=== PATIENT | female | born 1960 | race Caucasian/White ===

== ENCOUNTER → 2017-08-06 | Outpatient (CLI) | payer OTHER, MEDICARE | END | disposition home or self-care (01) | LOC: C.LABSPEC 15:54 | PROVIDERS: ATTEND Obstetrics & Gynecology | DX: N89.8 Other specified noninflammatory disorders of vagina (principal) ==

== ENCOUNTER → 2017-09-17 | Outpatient (CLI) | payer OTHER, MEDICARE ==
--- NOTE | 2017-09-17 15:51 | MAMMOGRAPHY REPORT ---
BILATERAL DIGITAL SCREENING MAMMOGRAM TOMOSYNTHESIS WITH CAD: 09/17/2017 CLINICAL HISTORY: Routine screening. TECHNIQUE: Breast tomosynthesis in addition to standard 2D mammography was performed. Current study was also evaluated with a Computer Aided Detection (CAD) system. COMPARISON: Comparison is made to exams dated: 09/15/2016 mammogram, 09/11/2015 mammogram, 4 mammogram, 09/07/2013 mammogram, 09/06/2012 mammogram, and 08/17/2011 mammogram - [facility]. BREAST COMPOSITION: There are scattered areas of fibroglandular density in both breasts. FINDINGS: No suspicious masses, calcifications, or areas of architectural distortion are noted in ei ther breast. There has been no significant interval change compared to prior exams. Scattered bilater al benign-appearing calcifications are not significantly changed. IMPRESSION: ACR BI-RADS CATEGORY 2: BENIGN There is no mammographic evidence of malignancy. A 1 year screening mammogram is recommended. The pa tient will receive written notification of the results. Approximately 10% of breast cancers are not detected with mammography. A negative mammographic report should not delay biopsy if a clinically suggestive mass is present. Basilia Butler M.D. ah/:09/17/2017 14:57:57 Oncology Pharmacist: Dane STARR(R)(M), [facility] letter sent: Normal 1/2 BI-RADS Code: ACR BI-RADS Category 2: Benign
== END | disposition home or self-care (01) ==
LOC: C.MAMM 11:00
PROVIDERS: ATTEND Obstetrics & Gynecology
DX: Z12.31 Encounter for screening mammogram for malignant neoplasm of breast (principal)

== ENCOUNTER 2019-09-28 16:04 | Inpatient (IN) ==
--- NOTE | 2019-09-28 17:14 | XRay Report ---
XR chest 1V portable CLINICAL HISTORY: weakness COMPARISON STUDY: Chest radiograph August 03, 2012. FINDINGS: Lung volumes are normal. Lungs are clear. There is no pneumothorax or pleural effusion. Car diac size is normal. Mediastinal contours are normal. There is no evidence for pulmonary edema. IMPRESSION: No acute cardiopulmonary findings. Electronically signed by: Ervin Valle M.D. 09/28/2019 5:12 PM
[2019-09-28 17:19] LABS: Appearance Urine Clear (Clear); Bilirubin Urine Negative (Negative); Blood Urine Negative (Negative); Color Urine Yellow; Glucose Urine UA Negative (Negative); Ketones Urine Negative (Negative); Leukocyte Esterase Urine Negative (Negative); Nitrite Urine Negative (Negative); Protein Urine Negative (Negative); Specific Gravity Urine 1.016 (1.000-1.030); Urobilinogen Urine Negative (Negative)
[2019-09-28 17:21] LABS: Basophils # (auto) 0.03 K/uL (0-0.2); Basophils % (auto) 0.4 %; Eosinophils # (auto) 0.04 K/uL (0-0.5); Eosinophils % (auto) 0.6 %; Hematocrit (blood only) 37.3 % (37-47); Hemoglobin 13.4 g/dL (12.0-16.0); Immature Granulocytes # (auto) 0.01 K/uL (0.00-0.02); Immature Granulocytes % (auto) 0.1 %; Lymphocytes # (auto) 1.94 K/uL (1.2-3.4); Lymphocytes % (auto) 28.2 %; Mean Corpuscular Hemoglobin 30.2 pg (25-34); Mean Corpuscular Hgb Conc 35.9 g/dL (32-36); Mean Corpuscular Volume 84.2 fL (80-100); Mean Platelet Volume 9.6 fL (7.4-10.4); Monocytes # (auto) 0.89 K/uL (0.11-0.59); Monocytes % (auto) 12.9 %; Neutrophils # (auto) 3.98 K/uL (1.4-6.5); Neutrophils % (auto) 57.8 %; Platelet Count 231 K/uL (130-400); RDW Coefficient of Variation 11.7 % (11.5-14.5); RDW Standard Deviation 36.3 fL (36.4-46.3); Red Blood Count 4.43 M/uL (4.2-5.4); White Blood Count 6.89 K/uL (4.8-10.8)
[2019-09-28 17:23] LABS: Alanine Aminotransferase 34 U/L (12-78); Albumin Level 3.9 gm/dl (3.4-5.0); Aspartate Aminotransferase 27 U/L (15-37); BUN Creatinine Ratio 21.1 (10-20); Blood Urea Nitrogen 39 mg/dl (7-18); Calcium 9.7 mg/dl (8.5-10.1); Carbon Dioxide 26 mmol/L (21-32); Chloride 85 mmol/L (98-107); Est GFR (African American) 34.6; Est GFR (Non-African American) 29.9; Glucose 105 mg/dl (70-99); Potassium 4.2 mmol/L (3.5-5.1); Sodium 121 mmol/L (136-145)
[2019-09-28 17:34] LABS: Albumin Globulin Ratio 1.1 (0.9-2); Alkaline Phosphatase 112 U/L (45-117); Bilirubin,Total 0.9 mg/dl (0.2-1); Globulin 3.5 gm/dl (2.5-4.0); Total Protein 7.4 gm/dl (6.4-8.2)
[2019-09-28] MEDS ORDERED: SODIUM CHLORIDE 0.9% 1000ML 1,000 ML IV ONE (17:44)
[2019-09-28 17:58] LABS: Urine Potassium 19.1 mmol/L
--- NOTE | 2019-09-28 20:24 | Emergency Department Note ---
Entered by Lena Aj acting as a scribe for History of Present Illness General Chief complaint: Abnormal Labs/Diagnostic Testing Stated complaint: HYPONATREMIA Time Seen by Provider: 09/28/19 16:11 Source: patient History of Present Illness Onset (ago): day(s) (yesterday) Location: back Pain Consistency: + other (episode) Quality: + other (abnormal labs) Associated symptoms: + other (feeling "lousy," low back pain, increased urination) The patient is a 59 year old female w/ PMHx CKD and diabetes who presents to the ED w/ CC of an episode of abnormal labs starting yesterday. The patient states that she had blood work ordered by her PCP and her [employer] principal yesterday to evaluate her standing as she has been feeling lousy. She states that the results showed that her sodium was low. She states that they took her off her hydrochlorothiazide and started her on Amlodipine. She reports that they ordered for a repeat draw today and it came back even lower than yesterday. She states that they then called her and told her to come to the ED. The patient sates that she has been having lower back soreness and thought she had a UTI as she has been urinating a lot. She states that she has felt dehydrated as well so she started pushing more fluids and was treated for a UTI, but it didnt help. The patient denies change in diet, a history of thyroid issues, a cardiac history, and a history of liver issues. Home Medications Home Medications Medication Instructions Recorded Confirmed Type Bifidobacterium infantis [Align] 0 mg PO DAILY 09/28/19 09/28/19 History amlodipine 5 mg PO DAILY 09/28/19 09/28/19 History atorvastatin 20 mg PO DAILY 09/28/19 09/28/19 History cholecalciferol (vitamin D3) 0 unit PO DAILY 09/28/19 09/28/19 History [Vitamin D3] cyanocobalamin (vitamin B-12) 0 mcg PO DAILY 09/28/19 09/28/19 History [Vitamin B-12] fluconazole 150 mg PO UD 09/28/19 09/28/19 History hydroxychloroquine 200 mg PO BID 09/28/19 09/28/19 History insulin degludec [Tresiba 24 unit SUBCUT HS 09/28/19 09/28/19 History FlexTouch U-100] levothyroxine 75 mcg PO DAILY 09/28/19 09/28/19 History lisinopril 20 mg PO DAILY 09/28/19 09/28/19 History semaglutide [Ozempic] 0 mg SUBCUT WK 09/28/19 09/28/19 History spironolactone 0 mg PO DAILY 09/28/19 09/28/19 History vitamin E 400 unit PO DAILY 09/28/19 09/28/19 History Allergies Allergy/AdvReac Type Severity Reaction Status Date / Time levofloxacin Allergy Unknown ` Verified 09/28/19 17:31 Past Med/Surg History Medical History CKD (chronic kidney disease) Diabetes Family History Other Family history non-contributory Social History Preferred Language: Uzbek Beliefs That Will Affect Care: None marital status: Single Current Living Situation: Other Current Living Situation Comment: home with friend current occupational status: disabled Feels Safe at Home: Yes Safety Concerns: Feels Safe At This Time Smoking Status: Never smoker Hx Alcohol Use: No Hx Substance Use: No Review of Systems See HPI for pertinent positives & negatives. and A total of 10 systems reviewed and were otherwise negative Physical Exam Vital Signs Vital Signs - 24 hr 09/28/19 16:06 09/28/19 16:51 09/28/19 17:19 Temperature 36.5 C Temperature Source Oral Pulse Rate 93 H Pulse Rate [Apical] 71 Pulse Rate from SpO2 Sensor Pulse Rhythm [Apical] Pulse Strength [Apical] Respiratory Rate 22 18 Respiratory Effort / Characteristics Non-Labored Respiratory Depth Normal Respiratory Pattern Blood Pressure 162/82 H Blood Pressure [Left Arm] 133/59 L Blood Pressure Mean 108 Blood Pressure Mean [Left Arm] 83 Blood Pressure Position Sitting Blood Pressure Position [Left Arm] Pulse Oximetry 98 99 Oxygen Delivery Method Room Air Room Air Room Air Sepsis Recent Fever Within 48 Hours No Sepsis New/Unexplained Change in Mental Status No Sepsis Action Taken by Nursing No Action Required 09/28/19 17:56 09/28/19 19:37 09/28/19 19:38 Temperature Temperature Source Pulse Rate 72 Pulse Rate [Apical] 72 72 Pulse Rate from SpO2 Sensor 72 Pulse Rhythm [Apical] Regular Pulse Strength [Apical] Normal Respiratory Rate 18 14 16 Respiratory Effort / Characteristics Non-Labored Spontaneous Respiratory Depth Normal Respiratory Pattern Regular Blood Pressure 123/61 Blood Pressure [Left Arm] 117/52 L 123/61 Blood Pressure Mean 77 Blood Pressure Mean [Left Arm] 73 81 Blood Pressure Position Blood Pressure Position [Left Arm] Lying Pulse Oximetry 98 97 98 Oxygen Delivery Method Room Air Room Air Sepsis Recent Fever Within 48 Hours Sepsis New/Unexplained Change in Mental Status Sepsis Action Taken by Nursing 09/28/19 20:00 09/28/19 20:30 09/28/19 21:01 Temperature Temperature Source Pulse Rate 72 74 71 Pulse Rate [Apical] Pulse Rate from SpO2 Sensor 72 74 71 Pulse Rhythm [Apical] Pulse Strength [Apical] Respiratory Rate 14 18 21 Respiratory Effort / Characteristics Respiratory Depth Respiratory Pattern Blood Pressure 119/53 L 137/70 117/62 Blood Pressure [Left Arm] Blood Pressure Mean 68 87 74 Blood Pressure Mean [Left Arm] Blood Pressure Position Blood Pressure Position [Left Arm] Pulse Oximetry 97 98 98 Oxygen Delivery Method Sepsis Recent Fever Within 48 Hours Sepsis New/Unexplained Change in Mental Status Sepsis Action Taken by Nursing GENERAL: Well appearing, well nourished, NAD, non-toxic. Wearing glasses. EYE EXAM: Normal conjunctiva. PERRL, no anisocoria and EOM's grossly intact w/o pain. OROPHARYNX: Moist mucous membranes. Grossly normal dentition. NECK: Supple, no nuchal rigidity, no adenopathy, non-tender. No signs of meningismus. LUNGS: Clear to auscultation. Normal chest wall mechanics. HEART: NSR, no MRG. ABDOMEN: Abdomen soft, non-tender, normo-active bowel sounds, no masses, no rebound or guarding. BACK: No CVA TTP. SKIN: No rashes and no bruising. UPPER EXTREMITIES: Upper extremities are grossly normal. LOWER EXTREMITIES: No pitting edema. No calf pain. NEURO EXAM: A&O x3, cranial nerves II-XII grossly intact, normal speech, moves all 4 extremities on command w/o issue. Course Course 162: The patient was evaluated in room C4. A complete history and physical exam was performed. 1629: Orders were placed and the patient was started on a quality assurance monitor at this time. 1706: I reviewed the patient's records from today and her sodium was 122. 184: I reevaluated the patient and updated her on her test results. I discussed the treatment plan with her. She verbally agrees and understands. 1916: I discussed the [facility] He will evaluate the patient for further management. 1956: I discussed the patient's case with Dr. Marcano [facility] Hospitalist. He will evaluate the patient for further management. Administered Medications Amlodipine Besylate (Norvasc) 5 mg PO DAILY TYLER Stop: 10/29/19 08:59 Last Admin: 09/29/19 08:40 Dose: 5 mg Documented by: [id number] Atorvastatin Calcium (Lipitor) 20 mg PO DAILY TYLER Stop: 10/29/19 08:59 Last Admin: 09/29/19 08:40 Dose: 20 mg Documented by: [id number] Heparin Sodium (Porcine) (Heparin Sodium (Porcine)) 5,000 units SQ Q12 TYLER Stop: 10/29/19 08:59 Last Admin: 09/29/19 08:41 Dose: 5,000 units Documented by: [id number] Cosigned by: [id number] Hydroxychloroquine Sulfate (Plaquenil) 200 mg PO BID TYLER Stop: 10/28/19 20:59 Last Admin: 09/29/19 08:40 Dose: 200 mg Documented by: [id number] Admin: 09/28/19 22:54 Dose: 200 mg Documented by: [id number] Dextrose (D5w) 1,000 mls @ 80 mls/hr IV .[id number] TYLER Stop: 10/29/19 07:43 Last Admin: 09/29/19 08:34 Dose: 80 mls/hr Documented by: [id number] Insulin Aspart (Novolog Flexpen) 0 units SC ACHS TYLER Stop: 10/29/19 07:29 Last Admin: 09/29/19 08:38 Dose: Not Given Documented by: [id number] Cosigned by: [id number] Insulin Glargine (Lantus Solostar Pen) 15 units SC BID TYLER Stop: 10/28/19 22:01 Last Admin: 09/29/19 08:42 Dose: 15 units Documented by: [id number] Cosigned by: [id number] Admin: 09/28/19 22:54 Dose: 15 units Documented by: [id number] Cosigned by: [id number] Levothyroxine Sodium (Synthroid) 75 mcg PO DAILYBB TYLER Stop: 10/29/19 06:29 Last Admin: 09/29/19 06:00 Dose: 75 mcg Documented by: [id number] Discontinued Medications Sodium Chloride (Nss 1000ml) 1,000 mls @ 999 mls/hr IV .[id number] ONE Stop: 09/28/19 18:44 Last Infusion: 09/28/19 19:39 Dose: 0 mls/hr Documented by: [id number] Admin: 09/28/19 17:55 Dose: 999 mls/hr Documented by: [id number] Critical Care Time Critical Care Time: Yes Total Critical Care Time: 42 I have personally spent 42 minutes of critical care time in direct management of this patient. This includes bedside care, interpretation of diagnostic studies, and testing, discussion with consultants, patient, and family members, and other require inpatient management activities due to the hyponatremia and concern for possible seizure for which the patient did receive sodium containing fluids. This 42 minutes is in excess of all separately billable procedures. Medical Decision Making Differential Diagnosis Differential Diagnosis includes but is not limited to dehydration, stroke, anemia, hypoglycemia, hyponatremia, hypernatremia, urinary tract infection, pneumonia, bronchitis, sepsis, gastroenteritis, additional abdominal pathology, metabolic abnormalities and infections. Medical Records Attestation: I reviewed the patient's medical records. Home Medications Current Medication List: was personally reviewed by me Laboratory Data Attestation: I reviewed the patient's lab results. Result diagrams: 09/29/19 01:45 09/29/19 05:58 Lab Results 09/28/19 09/28/19 09/28/19 Range/Units 16:55 16:55 16:55 WBC 6.89 (4.8-10.8) K/uL RBC 4.43 (4.2-5.4) M/uL Hgb 13.4 (12.0-16.0) g/dL Hct 37.3 (37-47) % MCV 84.2 (80-100) fL MCH 30.2 (25-34) pg MCHC 35.9 (32-36) g/dL RDW Std Deviation 36.3 L (36.4-46.3) fL RDW Coeff of Donna 11.7 (11.5-14.5) % Plt Count 231 (130-400) K/uL MPV 9.6 (7.4-10.4) fL Immature Gran % (Auto) 0.1 % Neut % (Auto) 57.8 % Lymph % (Auto) 28.2 % Gove % (Auto) 12.9 % Eos % (Auto) 0.6 % Baso % (Auto) 0.4 % Immature Gran # (Auto) 0.01 (0.00-0.02) K/uL Neut # (Auto) 3.98 (1.4-6.5) K/uL Lymph # (Auto) 1.94 (1.2-3.4) K/uL [place] # (Auto) 0.89 H (0.11-0.59) K/uL Eos # (Auto) 0.04 (0-0.5) K/uL Baso # (Auto) 0.03 (0-0.2) K/uL Sodium 121 L (136-145) mmol/L Potassium 4.2 (3.5-5.1) mmol/L Chloride 85 L (98-107) mmol/L Carbon Dioxide 26 (21-32) mmol/L Anion Gap 10.0 (3-11) BUN 39 H (7-18) mg/dl Creatinine 1.83 H (0.6-1.2) mg/dl Est Cr Clr Drug Dosing Not Reportable Est GFR ( Amer) 34.6 Est GFR (Non-Af Amer) 29.9 BUN/Creatinine Ratio 21.1 H (10-20) Glucose 105 H (70-99) mg/dl Osmolality 260 L (280-300) mOsm/kg Calcium 9.7 (8.5-10.1) mg/dl Total Bilirubin 0.9 (0.2-1) mg/dl AST 27 (15-37) U/L ALT 34 (12-78) U/L Alkaline Phosphatase 112 (45-117) U/L Total Protein 7.4 (6.4-8.2) gm/dl Albumin 3.9 (3.4-5.0) gm/dl Globulin 3.5 (2.5-4.0) gm/dl Albumin/Globulin Ratio 1.1 (0.9-2) TSH 2.760 (0.300-4.500) uIu/ml Urine Color Urine Appearance (Clear) Urine pH (4.5-7.5) Ur Specific [place] (1.000-1.030) Urine Protein (Negative) Urine Glucose (UA) (Negative) Urine Ketones (Negative) Urine Blood (Negative) Urine Nitrite (Negative) Urine Bilirubin (Negative) Urine Urobilinogen (Negative) Ur Leukocyte Esterase (Negative) Urine Osmolality (500-800) mOsm/kg Urine Sodium mmol/L Urine Potassium mmol/L Urine Chloride mmol/L 09/28/19 09/28/19 09/28/19 Range/Units 17:04 17:04 17:04 WBC (4.8-10.8) K/uL RBC (4.2-5.4) M/uL Hgb (12.0-16.0) g/dL Hct (37-47) % MCV (80-100) fL MCH (25-34) pg MCHC (32-36) g/dL RDW Std Deviation (36.4-46.3) fL RDW Coeff of Donna (11.5-14.5) % Plt Count (130-400) K/uL MPV (7.4-10.4) fL Immature Gran % (Auto) % Neut % (Auto) % Lymph % (Auto) % [place] % (Auto) % Eos % (Auto) % Baso % (Auto) % Immature Gran # (Auto) (0.00-0.02) K/uL Neut # (Auto) (1.4-6.5) K/uL Lymph # (Auto) (1.2-3.4) K/uL G[place] # (Auto) (0.11-0.59) K/uL Eos # (Auto) (0-0.5) K/uL Baso # (Auto) (0-0.2) K/uL Sodium (136-145) mmol/L Potassium (3.5-5.1) mmol/L Chloride (98-107) mmol/L Carbon Dioxide (21-32) mmol/L Anion Gap (3-11) BUN (7-18) mg/dl Creatinine (0.6-1.2) mg/dl Est Cr Clr Drug Dosing Est GFR ( Amer) Est GFR (Non-Af Amer) BUN/Creatinine Ratio (10-20) Glucose (70-99) mg/dl Osmolality (280-300) mOsm/kg Calcium (8.5-10.1) mg/dl Total Bilirubin (0.2-1) mg/dl AST (15-37) U/L ALT (12-78) U/L Alkaline Phosphatase (45-117) U/L Total Protein (6.4-8.2) gm/dl Albumin (3.4-5.0) gm/dl Globulin (2.5-4.0) gm/dl Albumin/Globulin Ratio (0.9-2) TSH (0.300-4.500) uIu/ml Urine Color Yellow Urine Appearance Clear (Clear) Urine pH 5.0 (4.5-7.5) Ur Specific [place] 1.016 (1.000-1.030) Urine Protein Negative (Negative) Urine Glucose (UA) Negative (Negative) Urine Ketones Negative (Negative) Urine Blood Negative (Negative) Urine Nitrite Negative (Negative) Urine Bilirubin Negative (Negative) Urine Urobilinogen Negative (Negative) Ur Leukocyte Esterase Negative (Negative) Urine Osmolality 337 L (500-800) mOsm/kg Urine Sodium 36 mmol/L Urine Potassium 19.1 mmol/L Urine Chloride 21 mmol/L Imaging Data Radiologist's Impression: Radiology results as stated below per my review and the radiologist's interpretation: XR chest 1V portable CLINICAL HISTORY: weakness COMPARISON STUDY: Chest radiograph August 03, 2012. FINDINGS: Lung volumes are normal. Lungs are clear. There is no pneumothorax or pleural effusion. Cardiac size is normal. Mediastinal contours are normal. There is no evidence for pulmonary edema. IMPRESSION: No acute cardiopulmonary findings. Electronically signed by: Ervin Valle M.D. 09/28/2019 5:12 PM ECG Data Attestation: I personally reviewed and interpreted this ECG as follows: Indication: + weakness Rate (beats per minute): 72 Rhythm: + normal sinus ECG Intervals/blocks: + Normal QRS, + Normal [place] and + Normal QT-c ECG [place]: + Normal ECG ST segments: no ST depression and no ST elevation Blood Pressure Blood Pressure Findings: Normal blood pressure Blood Pressure Disposition: did not require urgent referral MDM Narrative The patient is a 59 year old female w/ PMHx CKD and diabetes who presents to the ED w/ CC of an episode of abnormal labs starting yesterday. Patient was seen and evaluated the bedside. The patient did present with concerns for low sodium. The patient has complained of some increasing fatigue weakness as well as mild low back discomfort and associated increasing urinary f requency. Patient does have a known history of CKD. Patient does appear to be little dry on exam the patient's blood work does show the patient is persistently hyponatremic. I did review the patient's out subtle labs which showed decreasing sodiums. Given the patient's hypovolemic status patient was given some IV fluids. Given the concern for acute hyponatremia which is not improving I did talk with the hospitalist agreed to further evaluate the patient. Patient was subsequently made to the medicine service. Impression & Plan Hyponatremia, ROBERT (acute kidney injury), Dehydration Discharge Plan Visit Data *Final* Discharge Date/Time: 09/28/19 21:38 Chief Complaint: Abnormal Labs/Diagnostic Testing Stated Complaint: HYPONATREMIA ED Provider: Kelechi Gracia Discharge Problem: Hyponatremia, ROBERT (acute kidney injury), Dehydration Patient Disposition: Admitted As Inpatient Discharge Instructions Interventions: ED Discharge Assessment Last Done: 09/28/19 21:38 The scribe's documentation has been prepared under my direction and personally reviewed by me in its entirety. I confirm that the note above accurately reflects all work, treatment, procedures, and medical decision making performed by me.
--- NOTE | 2019-09-28 21:32 | History & Physical Report ---
Date of Service September 28, 2019 Assessment & Plan (1) Hyponatremia: Pt is a 59yo F PMH CKD, DM, HTN, hypothyroid, DLD, Fibromyalgia admitted for hyponatremia. Hyponatremia BMP every 4 hours -Patient appears clinically euvolemic. 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 Acute on chronic kidney disease Baseline creatinine of 1.5-1.6 -Patient received 1 L of IV fluids in the ER, first recheck revealed creatinine of 1.6 (from 1.83) -Cautious use of IV fluids. Hypertension Continue amlodipine, hold lisinopril, hold spironolactone. Blood pressure within normal limits. Diabetes BSG ACHS Holding home medication. Unclear if ozempic related to current symptoms and lab abnormalities. Insulin sliding scale and long-acting insulin initiated Hypothyroid Continue home medication. Code: Full Dispo: MedSurg with telemetry DVT prophylaxis: Heparin SQ twice daily (2) ROBERT (acute kidney injury): (3) Diabetes: (4) CKD (chronic kidney disease): (5) HTN (hypertension): (6) Hypothyroid: (7) Hyperlipidemia: (8) Fibromyalgia: History of Present Illness Chief Complaint: Malaise, weakness, nausea Primary Care Provider: Chavez Griffin Jr, DO Pt is a 59yo F PMH CKD, DM, HTN, hypothyroid, DLD, Fibromyalgia, who presents at request of outside provider for abnormal labs. Pt notes she has been feeling unwell for several weeks, but symptoms worsened today. She notes general malaise, nausea (intermittent), weakness, and increased urination despite no increase in fluid intake. Patient notes that 3 weeks ago her PCP checked lab work which revealed a creatinine elevation at 2.1; she notes this is the highest it has been in 5 years. She also notes continued frequency of urination, which prompted her PCP prescribing a 7-day course of antibiotics. She states she felt okay for 3 or 4 days, then symptoms returned. PCP ordered labs at that time, and then changed her antibiotics to a 10-day course. She does not recall which antibiotics she was on. She notes that her PCP got her lab results back and UA did not show an infection, however, patient was continuing to have lower back symptoms as well as frequency of urination. Due to her elevated creatinine, her PCP set her up with nephrology through [facility] with Dr. Yasmeen Lundberg. Her first appointment was this week. Per the patient, Dr. Lundberg obtained lab work which resulted today, and patient was found to be hyponatremic, which prompted referral to the ER. Of note, patient recently started medication Ozempic for her diabetes in August. She was concerned that despite her improved glucose control, the medication was causing her kidney issues. Patient notes that her security checker said this was unlikely unless she was dehydrated. Patient states she drinks at least 70 ounces of water per day. Her last dose was about a week ago. Her PCP and automotive specialty technician suggested she DC this medication. She notes her blood sugars have been improved however, and notes her last A1c was 6.7% last month. Per the patient, Dr. Lundberg discontinued her HCTZ medication, and also added amlodipine to her regimen. Evaluation in the ER revealed a normal CBC, and BMP showed a sodium of 121, potassium 4.2 creatinine of 1.83. It appears her baseline is 1.5-1.6. Serum osm was measured at 260, urine osm was measured at 337, urine sodium of 36, urine potassium of 19, urine creatinine was ordered. TSH was normal. Chest x- ray normal, EKG with normal sinus rhythm. Allergies Allergy/AdvReac Type Severity Reaction Status Date / Time levofloxacin Allergy Unknown ` Verified 09/28/19 17:31 hydrochlorothiazide AdvReac Mild Caused Verified 09/29/19 18:06 hyponatremia Home Medications Home Medications Medication Instructions Recorded Confirmed Type Bifidobacterium infantis [Align] 0 mg PO DAILY 09/28/19 09/28/19 History amlodipine 5 mg PO DAILY 09/28/19 09/28/19 History atorvastatin 20 mg PO DAILY 09/28/19 09/28/19 History cholecalciferol (vitamin D3) 0 unit PO DAILY 09/28/19 09/28/19 History [Vitamin D3] cyanocobalamin (vitamin B-12) 0 mcg PO DAILY 09/28/19 09/28/19 History [Vitamin B-12] fluconazole 150 mg PO UD 09/28/19 09/28/19 History hydroxychloroquine 200 mg PO BID 09/28/19 09/28/19 History insulin degludec [Tresiba 24 unit SUBCUT HS 09/28/19 09/28/19 History FlexTouch U-100] levothyroxine 75 mcg PO DAILY 09/28/19 09/28/19 History lisinopril 20 mg PO DAILY 09/28/19 09/28/19 History semaglutide [Ozempic] 0 mg SUBCUT WK 09/28/19 09/28/19 History spironolactone 0 mg PO DAILY 09/28/19 09/28/19 History vitamin E 400 unit PO DAILY 09/28/19 09/28/19 History Past Med/Surg History Medical History CKD (chronic kidney disease) Diabetes HTN (hypertension) Family History Other Family history non-contributory Social History Preferred Language: Latvian Beliefs That Will Affect Care: None marital status: Single Current Living Situation: Other Current Living Situation Comment: home with friend current occupational status: disabled Feels Safe at Home: Yes Safety Concerns: Feels Safe At This Time Smoking Status: Never smoker Hx Alcohol Use: No Hx Substance Use: No Review of Systems Review of Systems: All systems reviewed & are unremarkable except as noted in HPI & below Review of systems otherwise negative, total of 10 systems reviewed. Please see HPI. Physical Exam Physical Exam: General: Well-appearing F, in no significant distress. HEENT: No scleral icterus, PERRLA, neck supple. Atraumatic. Cardiovascular: Regular rate and rhythm, systolic murmur noted. Pulmonary: Clear to auscultation bilaterally, normal work of breathing. Abdomen: Soft, nontender, nondistended, positive bowel sounds. Musculoskeletal: Atraumatic, trace to 1+ peripheral edema bilaterally. Neurologic: Patient awake alert and oriented x 3, full strength in all 4 extremities. Cranial nerves 2 through 12 grossly intact. Skin: Warm, dry, no rash Results & Data Vital Signs (Past 12 Hours) Vital Signs Temp Pulse Pulse Resp BP BP Pulse Ox 09/28/19 21:01 71 21 117/62 98 09/28/19 20:30 74 18 137/70 98 09/28/19 20:00 72 14 119/53 L 97 09/28/19 19:38 72 16 123/61 98 09/28/19 19:37 72 14 123/61 97 09/28/19 17:56 72 18 117/52 L 98 09/28/19 17:19 71 18 133/59 L 99 09/28/19 16:06 97.7 F 93 H 22 162/82 H 98 Laboratory Results 09/29/19 09/29/19 09/29/19 Range/Units 01:45 01:45 01:45 WBC 6.08 (4.8-10.8) K/uL RBC 4.22 (4.2-5.4) M/uL Hgb 12.5 (12.0-16.0) g/dL Hct 35.7 L (37-47) % MCV 84.6 (80-100) fL MCH 29.6 (25-34) pg MCHC 35.0 (32-36) g/dL RDW Std Deviation 36.0 L (36.4-46.3) fL RDW Coeff of Donna 11.6 (11.5-14.5) % Plt Count 187 (130-400) K/uL MPV 9.2 (7.4-10.4) fL Immature Gran % (Auto) 0.2 % Neut % (Auto) 51.1 % Lymph % (Auto) 34.4 % [place] % (Auto) 13.0 % Eos % (Auto) 0.8 % Baso % (Auto) 0.5 % Immature Gran # (Auto) 0.01 (0.00-0.02) K/uL Neut # (Auto) 3.11 (1.4-6.5) K/uL Lymph # (Auto) 2.09 (1.2-3.4) K/uL [place] # (Auto) 0.79 H (0.11-0.59) K/uL Eos # (Auto) 0.05 (0-0.5) K/uL Baso # (Auto) 0.03 (0-0.2) K/uL Sodium 127 L (136-145) mmol/L Potassium 4.1 (3.5-5.1) mmol/L Chloride 93 L (98-107) mmol/L Carbon Dioxide 26 (21-32) mmol/L Anion Gap 8.0 (3-11) BUN 35 H (7-18) mg/dl Creatinine 1.64 H (0.6-1.2) mg/dl Est Cr Clr Drug Dosing 40.8 Est GFR ( Amer) 39.5 Est GFR (Non-Af Amer) 34.1 BUN/Creatinine Ratio 21.5 H (10-20) Glucose 110 H (70-99) mg/dl POC Glucose (70-99) Estimat Average Glucose Pending Hemoglobin A1c Pending Osmolality (280-300) mOsm/kg Calcium 8.5 (8.5-10.1) mg/dl Total Bilirubin (0.2-1) mg/dl AST (15-37) U/L ALT (12-78) U/L Alkaline Phosphatase (45-117) U/L Total Protein (6.4-8.2) gm/dl Albumin (3.4-5.0) gm/dl Globulin (2.5-4.0) gm/dl Albumin/Globulin Ratio (0.9-2) TSH (0.300-4.500) uIu/ml Urine Color Urine Appearance (Clear) Urine pH (4.5-7.5) Ur Specific [place] (1.000-1.030) Urine Protein (Negative) Urine Glucose (UA) (Negative) Urine Ketones (Negative) Urine Blood (Negative) Urine Nitrite (Negative) Urine Bilirubin (Negative) Urine Urobilinogen (Negative) Ur Leukocyte Esterase (Negative) Urine Osmolality (500-800) mOsm/kg Ur Random Creatinine mg/dl Urine Sodium mmol/L Urine Potassium mmol/L Urine Chloride mmol/L 09/28/19 09/28/19 09/28/19 Range/Units Unknown 22:15 22:06 WBC (4.8-10.8) K/uL RBC (4.2-5.4) M/uL Hgb (12.0-16.0) g/dL Hct (37-47) % MCV (80-100) fL MCH (25-34) pg MCHC (32-36) g/dL RDW Std Deviation (36.4-46.3) fL RDW Coeff of Donna (11.5-14.5) % Plt Count (130-400) K/uL MPV (7.4-10.4) fL Immature Gran % (Auto) % Neut % (Auto) % Lymph % (Auto) % [place] % (Auto) % Eos % (Auto) % Baso % (Auto) % Immature Gran # (Auto) (0.00-0.02) K/uL Neut # (Auto) (1.4-6.5) K/uL Lymph # (Auto) (1.2-3.4) K/uL [place] # (Auto) (0.11-0.59) K/uL Eos # (Auto) (0-0.5) K/uL Baso # (Auto) (0-0.2) K/uL Sodium 124 L (136-145) mmol/L Potassium 4.2 (3.5-5.1) mmol/L Chloride 90 L (98-107) mmol/L Carbon Dioxide 25 (21-32) mmol/L Anion Gap 8.0 (3-11) BUN 36 H (7-18) mg/dl Creatinine 1.65 H (0.6-1.2) mg/dl Est Cr Clr Drug Dosing Not Reportable Est GFR ( Amer) 39.3 Est GFR (Non-Af Amer) 33.9 BUN/Creatinine Ratio 21.7 H (10-20) Glucose 154 H (70-99) mg/dl POC Glucose 149 H (70-99) Estimat Average Glucose Hemoglobin A1c Osmolality (280-300) mOsm/kg Calcium 9.0 (8.5-10.1) mg/dl Total Bilirubin (0.2-1) mg/dl AST (15-37) U/L ALT (12-78) U/L Alkaline Phosphatase (45-117) U/L Total Protein (6.4-8.2) gm/dl Albumin (3.4-5.0) gm/dl Globulin (2.5-4.0) gm/dl Albumin/Globulin Ratio (0.9-2) TSH (0.300-4.500) uIu/ml Urine Color Urine Appearance (Clear) Urine pH (4.5-7.5) Ur Specific [place] (1.000-1.030) Urine Protein (Negative) Urine Glucose (UA) (Negative) Urine Ketones (Negative) Urine Blood (Negative) Urine Nitrite (Negative) Urine Bilirubin (Negative) Urine Urobilinogen (Negative) Ur Leukocyte Esterase (Negative) Urine Osmolality (500-800) mOsm/kg Ur Random Creatinine 110.0 mg/dl Urine Sodium mmol/L Urine Potassium mmol/L Urine Chloride mmol/L 12/12/19 12/12/19 12/12/19 Range/Units 17:04 17:04 17:04 WBC (4.8-10.8) K/uL RBC (4.2-5.4) M/uL Hgb (12.0-16.0) g/dL Hct (37-47) % MCV (80-100) fL MCH (25-34) pg MCHC (32-36) g/dL RDW Std Deviation (36.4-46.3) fL RDW Coeff of Donna (11.5-14.5) % Plt Count (130-400) K/uL MPV (7.4-10.4) fL Immature Gran % (Auto) % Neut % (Auto) % Lymph % (Auto) % [place] % (Auto) % Eos % (Auto) % Baso % (Auto) % Immature Gran # (Auto) (0.00-0.02) K/uL Neut # (Auto) (1.4-6.5) K/uL Lymph # (Auto) (1.2-3.4) K/uL [place] # (Auto) (0.11-0.59) K/uL Eos # (Auto) (0-0.5) K/uL Baso # (Auto) (0-0.2) K/uL Sodium (136-145) mmol/L Potassium (3.5-5.1) mmol/L Chloride (98-107) mmol/L Carbon Dioxide (21-32) mmol/L Anion Gap (3-11) BUN (7-18) mg/dl Creatinine (0.6-1.2) mg/dl Est Cr Clr Drug Dosing Est GFR ( Amer) Est GFR (Non-Af Amer) BUN/Creatinine Ratio (10-20) Glucose (70-99) mg/dl POC Glucose (70-99) Estimat Average Glucose Hemoglobin A1c Osmolality (280-300) mOsm/kg Calcium (8.5-10.1) mg/dl Total Bilirubin (0.2-1) mg/dl AST (15-37) U/L ALT (12-78) U/L Alkaline Phosphatase (45-117) U/L Total Protein (6.4-8.2) gm/dl Albumin (3.4-5.0) gm/dl Globulin (2.5-4.0) gm/dl Albumin/Globulin Ratio (0.9-2) TSH (0.300-4.500) uIu/ml Urine Color Yellow Urine Appearance Clear (Clear) Urine pH 5.0 (4.5-7.5) Ur Specific [place] 1.016 (1.000-1.030) Urine Protein Negative (Negative) Urine Glucose (UA) Negative (Negative) Urine Ketones Negative (Negative) Urine Blood Negative (Negative) Urine Nitrite Negative (Negative) Urine Bilirubin Negative (Negative) Urine Urobilinogen Negative (Negative) Ur Leukocyte Esterase Negative (Negative) Urine Osmolality 337 L (500-800) mOsm/kg Ur Random Creatinine mg/dl Urine Sodium 36 mmol/L Urine Potassium 19.1 mmol/L Urine Chloride 21 mmol/L 09/28/19 09/28/19 09/28/19 Range/Units 16:55 16:55 16:55 WBC 6.89 (4.8-10.8) K/uL RBC 4.43 (4.2-5.4) M/uL Hgb 13.4 (12.0-16.0) g/dL Hct 37.3 (37-47) % MCV 84.2 (80-100) fL MCH 30.2 (25-34) pg MCHC 35.9 (32-36) g/dL RDW Std Deviation 36.3 L (36.4-46.3) fL RDW Coeff of Donna 11.7 (11.5-14.5) % Plt Count 231 (130-400) K/uL MPV 9.6 (7.4-10.4) fL Immature Gran % (Auto) 0.1 % Neut % (Auto) 57.8 % Lymph % (Auto) 28.2 % [place] % (Auto) 12.9 % Eos % (Auto) 0.6 % Baso % (Auto) 0.4 % Immature Gran # (Auto) 0.01 (0.00-0.02) K/uL Neut # (Auto) 3.98 (1.4-6.5) K/uL Lymph # (Auto) 1.94 (1.2-3.4) K/uL [place] # (Auto) 0.89 H (0.11-0.59) K/uL Eos # (Auto) 0.04 (0-0.5) K/uL Baso # (Auto) 0.03 (0-0.2) K/uL Sodium 121 L (136-145) mmol/L Potassium 4.2 (3.5-5.1) mmol/L Chloride 85 L (98-107) mmol/L Carbon Dioxide 26 (21-32) mmol/L Anion Gap 10.0 (3-11) BUN 39 H (7-18) mg/dl Creatinine 1.83 H (0.6-1.2) mg/dl Est Cr Clr Drug Dosing Not Reportable Est GFR ( Amer) 34.6 Est GFR (Non-Af Amer) 29.9 BUN/Creatinine Ratio 21.1 H (10-20) Glucose 105 H (70-99) mg/dl POC Glucose (70-99) Estimat Average Glucose Hemoglobin A1c Osmolality 260 L (280-300) mOsm/kg Calcium 9.7 (8.5-10.1) mg/dl Total Bilirubin 0.9 (0.2-1) mg/dl AST 27 (15-37) U/L ALT 34 (12-78) U/L Alkaline Phosphatase 112 (45-117) U/L Total Protein 7.4 (6.4-8.2) gm/dl Albumin 3.9 (3.4-5.0) gm/dl Globulin 3.5 (2.5-4.0) gm/dl Albumin/Globulin Ratio 1.1 (0.9-2) TSH 2.760 (0.300-4.500) uIu/ml Urine Color Urine Appearance (Clear) Urine pH (4.5-7.5) Ur Specific [place] (1.000-1.030) Urine Protein (Negative) Urine Glucose (UA) (Negative) Urine Ketones (Negative) Urine Blood (Negative) Urine Nitrite (Negative) Urine Bilirubin (Negative) Urine Urobilinogen (Negative) Ur Leukocyte Esterase (Negative) Urine Osmolality (500-800) mOsm/kg Ur Random Creatinine mg/dl Urine Sodium mmol/L Urine Potassium mmol/L Urine Chloride mmol/L Code Status & VTE Plan Code Status Full VTE Prophylaxis Plan VTE Prophylaxis will be ordered: Yes Supervising Physician Co-Signing Physician Notes Attending addendum: I have physically seen this patient, have supervised the medical residents activities, and agree with the H&P unless as otherwise noted. Assessment and Plan: Hyponatremia with hypo-osmolality- Sodium level 121. Serum osmolality 260. Urine osmolality 337. Question SIADH, however, acute on chronic kidney disease gives a mixed picture. Consult nephrology Acute on chronic kidney disease- Creatinine 1.83 today. Baseline creatinine with baseline 1.5-1.6. Follow serial laboratories. Remaining orders and notations as noted. Resident Activity Tracking Resident Involvement: Resident Care Provided Care Provided: Adult [facility]
[2019-09-28] MEDS ORDERED: GLUCOSE 40% GEL 15 GM TUBE PO PRN (22:02)
[2019-09-28] MEDS ORDERED: GLUCAGON FOR INJ 1 MG VIAL SQ PRN (22:02)
[2019-09-28] MEDS ORDERED: DEXTROSE 50% 50 ML SYRINGE IV PRN (22:02)
[2019-09-28] MEDS ORDERED: ONDANSETRON INJ 2 MG/ML 2 ML VIAL IV PRN (22:02)
[2019-09-28] MEDS ORDERED: MAGNESIUM HYDROXIDE SUSP 30 ML UDC PO PRN (22:02)
[2019-09-28] MEDS ORDERED: POLYETHYLENE (MIRALAX) 17 GM PACK PO PRN (22:02)
[2019-09-28] MEDS ORDERED: GLUCOSE 10 TABS/TUBE PO PRN (22:02)
[2019-09-28] MEDS ORDERED: ACETAMINOPHEN 325 MG TAB PO PRN (22:02)
[2019-09-28] MEDS ORDERED: ALUMINUM/MAGNESIUM SUSP 30 ML UDC PO PRN (22:02)
[2019-09-28] MEDS ORDERED: HydrALAZINE HCL 20 MG/ML VIAL IV PRN (22:02)
[2019-09-28] MEDS ORDERED: CARBOHYDRATES FOR HYPOGLYCEMIA PO PRN (22:02)
[2019-09-28 22:41] LABS: BUN Creatinine Ratio 21.7 (10-20); Blood Urea Nitrogen 36 mg/dl (7-18); Carbon Dioxide 25 mmol/L (21-32); Chloride 90 mmol/L (98-107); Est GFR (African American) 39.3; Est GFR (Non-African American) 33.9; Glucose 154 mg/dl (70-99); Potassium 4.2 mmol/L (3.5-5.1); Sodium 124 mmol/L (136-145)
[2019-09-28] MEDS: INSULIN GLARGINE SOLOSTAR 100 UNITS/ML 3 ML PEN SC SCH (22:54)
[2019-09-28] MEDS: HYDROXYCHLOROQUINE SULFATE 200 MG TAB PO SCH (22:54)
[2019-09-29 01:58] LABS: Basophils # (auto) 0.03 K/uL (0-0.2); Basophils % (auto) 0.5 %; Eosinophils # (auto) 0.05 K/uL (0-0.5); Eosinophils % (auto) 0.8 %; Hematocrit (blood only) 35.7 % (37-47); Hemoglobin 12.5 g/dL (12.0-16.0); Immature Granulocytes # (auto) 0.01 K/uL (0.00-0.02); Immature Granulocytes % (auto) 0.2 %; Lymphocytes # (auto) 2.09 K/uL (1.2-3.4); Lymphocytes % (auto) 34.4 %; Mean Corpuscular Hemoglobin 29.6 pg (25-34); Mean Corpuscular Volume 84.6 fL (80-100); Mean Platelet Volume 9.2 fL (7.4-10.4); Monocytes # (auto) 0.79 K/uL (0.11-0.59); Neutrophils # (auto) 3.11 K/uL (1.4-6.5); Neutrophils % (auto) 51.1 %; Platelet Count 187 K/uL (130-400); RDW Coefficient of Variation 11.6 % (11.5-14.5); Red Blood Count 4.22 M/uL (4.2-5.4); White Blood Count 6.08 K/uL (4.8-10.8)
[2019-09-29 02:13] LABS: BUN Creatinine Ratio 21.5 (10-20); Calcium 8.5 mg/dl (8.5-10.1); Creatinine Clr Calc Pharmacy 40.8 ml/min; Est GFR (African American) 39.5; Est GFR (Non-African American) 34.1; Potassium 4.1 mmol/L (3.5-5.1)
[2019-09-29] MEDS ORDERED: PNEUMOCOCCAL Polysaccharide Vaccine 25mcg/0.5mL vial/Syr IM ONE (05:45)
[2019-09-29] MEDS: LEVOTHYROXINE SODIUM 75 MCG TABLET PO SCH (06:00)
[2019-09-29 06:23] LABS: Estimated Average Glucose 134 mg/dl; Hemoglobin A1C 6.3 % (4.5-5.6)
[2019-09-29 07:01] LABS: BUN Creatinine Ratio 22.2 (10-20); Calcium 9.1 mg/dl (8.5-10.1); Creatinine Clr Calc Pharmacy 45.8 ml/min; Est GFR (Non-African American) 36.2; Potassium 4.2 mmol/L (3.5-5.1)
[2019-09-29] MEDS ORDERED: DEXTROSE 5% 1,000 ML IV STA (07:44)
[2019-09-29] MEDS: DEXTROSE 5% 1,000 ML IV SCH ×2 (08:34→20:57)
[2019-09-29] MEDS: INSULIN ASPART 100 UNITS/ML 3 ML PEN SC SCH ×4 (08:38→21:02)
[2019-09-29] MEDS: HYDROXYCHLOROQUINE SULFATE 200 MG TAB PO SCH ×2 (08:40→21:06)
[2019-09-29] MEDS: ATORVASTATIN 20 MG TAB PO SCH (08:40)
[2019-09-29] MEDS: AMLODIPINE BESYLATE 5 MG TAB PO SCH (08:40)
[2019-09-29] MEDS: HEPARIN SOD 5,000 UNIT/0.5 ML VIAL SQ SCH ×2 (08:41→21:03)
[2019-09-29] MEDS: INSULIN GLARGINE SOLOSTAR 100 UNITS/ML 3 ML PEN SC SCH ×2 (08:42→21:05)
--- NOTE | 2019-09-29 09:32 | Ultrasound Report ---
RENAL ULTRASOUND HISTORY: kidneys, ureter, bladder, ?hydro COMPARISON: None. FINDINGS: Right kidney: 9.9 cm. No hydronephrosis. Normal corticomedullary differentiation and cortical thickne ss. Left kidney: 9.1 cm. No hydronephrosis. Normal corticomedullary differentiation and cortical thicknes s. Bladder: Under distended and almost completely empty. No definite bladder wall thickening. The ureter al jets are not identified. IMPRESSION: 1. Normal kidneys. 2. The bladder is not well visualized due to decompression. Electronically signed by: Kun Cohen M.D. 09/29/2019 9:30 AM
--- NOTE | 2019-09-29 09:55 | Nephrology Consultation ---
Date of Consultation September 29, 2019 Assessment & Plan (1) Hyponatremia: presenting sNa last evening 121; agree most c/w SIADH, ? from hctz (only stopped one day prior to admission) versus other process -goal sNa this evening is 127 >> 130 this am which is too high -started D5W at 80 ml/hr -repeat bmp ordered for noon >> 129; cont D5W and repeat bmp for 1800 -continue FR 1.5L for now -STRICT I/O pls Present on Admission?: Yes (2) CKD (chronic kidney disease): upper limit of baseline 1.8; at baseline currently; baseline range for creatinine in 2019 is 1.5-1.8; no ROBERT; CKD from longstanding HTN, DM both > 20 yrs -daily bmp while in house Present on Admission?: Yes (3) HTN (hypertension): as an outpt takes amlodipine 5 mg daily (just started after hctz stopped), lisinopril 20 mg daily; spironolactone also recently thsi week lowered from 12.5 mg bid to 12.5 mg qAM -BP currently at goal on just amlodipine -cont to hold ACEI, nicol antagonist Present on Admission?: Yes (4) Lower urinary tract symptoms (LUTS): c/o sudden onset nocturia, frequency, recurrent uti (had empiric antibiotics; no urine studies c/w infection despite ongoing sx) as of about 09/06/2019. No glucosuria or proteinuria; urine specimens have not been p articularly dilute and sodium has been low not high>> so little suspicion at this time for nephrogenic DI. urine sediment in hospital remains bland -I referred pt earlier this week to urogyn to evaluate pelvic floor -pt also apparently has urology eval scheduled upcoming ->>>pls do strict I/O while in house to eval if polyuria present or not -cont to encourage her to do timed voids, double voiding; encouraged her to increase cranberry product intake and to consider vaginal estrogen Present on Admission?: Yes History of Present Illness Reason for Consultation: hyponatremia, CKD Requesting Physician: Dr Guo Attending Physician: Leeroy Warren MD History of Present Illness 59 y/o F whom I'm asked so see for hyponatremia, CKD after I sent her to ER yesterday d/t OP serum sodium 122. On presentation here her sNa was 121, serum osms 260, urine osms 337, nNa 36, serum K 4.2, creatinine 1.8. She had a L of NS in ER. No other IVF. She had been vomiting earlier in day. On presentation, no N, no ambulatory dysfunction, no acute MS changes. sNa this am is 130. she remains w/o sx. Pt has only just established care in CKD clinic earlier this week. Noted to have hyponatremia on intake labs while taking hctz which was stopped on 09/27. Her cc on presenting to est care w/ me were urinary complaints such as urinary frequency, nocturia disrupting sleep, some dysuria, some external genitalia irritation. These sx were ongoing but had sudden onset mid august, when she also had empiric antibiotic therapy for a UTI w/o resolution of sx. I did not advise that her DM meds be changed but did ask her to revisit her sudden onset of LUTS after starting ozempic/increasing trulicity dosing. Allergies Allergy/AdvReac Type Severity Reaction Status Date / Time levofloxacin Allergy Unknown ` Verified 09/28/19 17:31 Home Medications Home Medications Medication Instructions Recorded Confirmed Type Bifidobacterium infantis [Align] 0 mg PO DAILY 09/28/19 09/28/19 History amlodipine 5 mg PO DAILY 09/28/19 09/28/19 History atorvastatin 20 mg PO DAILY 09/28/19 09/28/19 History cholecalciferol (vitamin D3) 0 unit PO DAILY 09/28/19 09/28/19 History [Vitamin D3] cyanocobalamin (vitamin B-12) 0 mcg PO DAILY 09/28/19 09/28/19 History [Vitamin B-12] fluconazole 150 mg PO UD 09/28/19 09/28/19 History hydroxychloroquine 200 mg PO BID 09/28/19 09/28/19 History insulin degludec [Tresiba 24 unit SUBCUT HS 09/28/19 09/28/19 History FlexTouch U-100] levothyroxine 75 mcg PO DAILY 09/28/19 09/28/19 History lisinopril 20 mg PO DAILY 09/28/19 09/28/19 History semaglutide [Ozempic] 0 mg SUBCUT WK 09/28/19 09/28/19 History spironolactone 0 mg PO DAILY 09/28/19 09/28/19 History vitamin E 400 unit PO DAILY 09/28/19 09/28/19 History Patient History Medical History CKD (chronic kidney disease) Diabetes HTN (hypertension) Family History Other Family history non-contributory Social History Preferred Language: Mongolian Beliefs That Will Affect Care: None marital status: Single Current Living Situation: Other Current Living Situation Comment: home with friend current occupational status: disabled Feels Safe at Home: Yes Safety Concerns: Feels Safe At This Time Smoking Status: Never smoker Hx Alcohol Use: No Hx Substance Use: No Review of Systems Review of Systems: All systems reviewed & are unremarkable except as noted in HPI & below Constitutional: + insomnia (d/t urinary frequency) feels improved at time of eval Cardiovascular: no chest pain, no dyspnea and no edema Gastrointestinal: as per Subjective / HPI, + nausea and + vomiting; no diarrhea/loose stools Genitourinary: + dysuria, + urinary frequency, + urinary urgency and + nocturia pt reports polyuria Neurologic: no gait abnormality, no localized weakness, no generalized weakness and no confusion Psychiatric: + abnormal sleep pattern; no behavioral changes Physical Exam Constitutional: well developed and well nourished; no acute distress (on RA in bed maneuvers readily for exam) Eyes: EOM intact bilaterally ENMT: Ears: no external ear abnormality Nose: no external nose abnormality Mouth: + dry oral mucous membranes Neck: no nuchal rigidity Respiratory: normal respiratory effort Auscultation: lungs clear to au scultation bilaterally and + diminished lung sounds Cardiovascular: RRR, no murmur, no edema Gastrointestinal (Abdomen): Inspection/Auscultation: abdomen normal to inspection and normal bowel sounds Percussion/Palpation: abdomen soft; abdomen nontender Musculoskeletal: no cyanosis or clubbing, extremities motor strength 5/5 Extremities: strength 5/5 throughout Skin: no rashes, warm and dry cheilosis corners of mouth Neurologic: bianchi, fluent speech, no tremor Psychiatric: Orientation: alert and oriented x 3 Speech: normal rate/rhythm/volume of speech Affect: + anxious affect Genitourinary: no dodson Results & Data Vital Signs (Past 12 Hours) Vital Signs Temp Pulse Pulse Pulse Resp BP Pulse Ox 09/29/19 07:13 36.7 C 72 16 101/61 99 09/29/19 00:00 72 09/28/19 23:32 36.9 C 64 19 110/69 97 09/28/19 22:42 80 74 16 146/83 H 97 09/28/19 22:34 36.6 C 74 19 146/83 H 97 Laboratory Results 09/29/19 01:45 09/29/19 12:17 Diagnostic Findings cxr no acute cp process renal u/s unremarkable (1) CKD (chronic kidney disease) Chronic kidney disease stage: stage 3 (moderate) Qualified Code(s): N18.3 - Chronic kidney disease, stage 3 (moderate) (2) HTN (hypertension) Hypertension type: essential hypertension Qualified Code(s): I10 - Essential (primary) hypertension
[2019-09-29 12:46] LABS: BUN Creatinine Ratio 20.6 (10-20); Calcium 9.4 mg/dl (8.5-10.1); Creatinine Clr Calc Pharmacy 46.7 ml/min; Est GFR (Non-African American) 37.1; Potassium 4.3 mmol/L (3.5-5.1)
[2019-09-29 17:01] LABS: BUN Creatinine Ratio 18.7 (10-20); Creatinine Clr Calc Pharmacy 40.1 ml/min; Est GFR (African American) 35.8; Est GFR (Non-African American) 30.9; Potassium 4.4 mmol/L (3.5-5.1)
--- NOTE | 2019-09-29 18:42 | Hospitalist Progress Note ---
Date of Service September 29, 2019 Assessment & Plan (1) Hyponatremia: Na 121 on admission. Urinary frequency started suddenly 2 weeks ago without medication changes although started Ozempic in mid August and has had decreased appetite since then but consistent fluid intake. Correction from admission appears to be fast although she is showing no signs of osmotic demyelination syndrome, D5W started by nephrology @ 80ml/hr. Serum Osm 260, Na 121 (130 at time of urine studies after 1L bolus NSS), urine osm 337 (inappropriately high), Na 36 (after NSS bolus suggestive of hypovolemic hyponatremia - previously taking both spironolactone and HCTZ) LFTs unremarkable, no known heart failure, TSH 2.76, euvolemic on exam. SIADH unusual given sudden polyuria although this is not confirmed, no trauma to suggest cerebral wasting. Primary polydipsia remains on differential despite patient feeling she has not changed the amount she is drinking. (2) CKD (chronic kidney disease): Baseline 1.5-1.8 UA negative for protein and renal US unremarkable. Reports having no proteinuria on outpatient test (3) Arthralgia: Post lyme syndrome, arthralgias/fatigue syndrome. Sister has Sjogren's and patient has no formal diagnosis of lupus although she has improved on Plaquenil. UA not suggestive of lupus nephritis but no micro, will order. (4) HTN (hypertension): Continue amlodipine and monitor worsening leg swelling BP stable Holding lisinopril and spironolactone due to hyponatremia (5) Lower urinary tract symptoms (LUTS): Urinary frequency vs. polyuria. PVR - unremarkable Sudden onset UA unremarkable, micro ordered. (6) Diabetes: Will reduce lantus to 10 units BID due to Continue insulin SS while admitted with correction and (7) Hypothyroid: TSH 2.76. Continue levothyroxine 75 mcg daily (8) Hyperlipidemia: Continue atorvastatin 20 mg p.o. daily (9) Family history of multiple myeloma: Mother diagnosed with this in her 60s. No anemia, hypercalcemia, normal protein levels. If hyponatremia not improving could consider SPEP/UPEP although these are reference labs and best performed in outpatient setting. (10) DVT prophylaxis: Continue heparin 5000 units SQ BID Subjective Patient seen in a.m. Lying in bed. Comfortable. No acute concerns at this t latonya. No acute events overnight. She reports improving " lousy" feeling since admission to hospital and her sodium improving. Revisited recent history with the patient. She reports urinary frequency starting approximately 2 weeks ago with associated lower back aching bilaterally. Seen by her PCP and started on Macrobid on 09/08. Apparently subsequent urine culture did not grow any bacteria however I do not have these results. She filled a second prescription for Macrobid on 09/18 for 10 days as her symptoms did not resolve. She denies any dysuria at these times. Neither of these courses of antibiotics helped her symptoms. She also reports recent changes to her diabetes medications with Ozempic introduced around August 29. The main side effect she has noticed with this has been decreased appetite although she reports her oral intake has remained very constant. Review of Systems Review of Systems: All systems reviewed & are unremarkable except as noted in HPI & below Physical Exam Constitutional: well developed and well nourished; no acute distress Eyes: + anicteric sclerae; normal pupil size ENMT: external ear and nose normal, oropharynx normal Neck: trachea midline Respiratory: normal respiratory effort, lungs clear to auscultation Cardiovascular: Rate/Rhythm: regular rate and regular rhythm Heart Sounds: no murmur Extremities: + pedal edema (trace b/l) Gastrointestinal (Abdomen): normal bowel sounds, soft, nontender, no hepatosplenomegaly Musculoskeletal: no cyanosis or clubbing, extremities motor strength 5/5 Skin: no rashes, warm and dry Neurologic: CN's II-XI intact bilaterally, moves all extremities and awake; no focal motor deficits and not confused Speech / Cognition: normal speech Motor/Sensory: no tremor, no pronator drift and no sensory deficit Psychiatric: A+Ox3, euthymic affect Results & Data Vital Signs (Past 12 Hours) Vital Signs Temp Pulse Pulse Pulse Resp BP Pulse Ox 09/29/19 15:47 36.6 C 69 20 133/89 97 09/29/19 12:00 36.6 C 65 16 117/71 98 09/29/19 08:00 67 09/29/19 07:13 36.7 C 72 16 101/61 99 PG Care Time/CCT Total # of Minutes Spent Total Time Spent with Patient: Total time spent is greater than 50% in coordination of care (as documented) at patient's floor/unit and/or counseling patient: (1) Arthralgia Joint pain location: unspecified Qualified Code(s): M25.50 - Pain in unspecified joint (2) Diabetes Chronic kidney disease stage: stage 3 (moderate) Diabetes mellitus complication detail: with chronic kidney disease Diabetes mellitus complication status: with kidney complications Diabetes mellitus usp insulin use: with usp use Diabetes mellitus type: type 2 Qualified Code(s): E11.22 - Type 2 diabetes mellitus with diabetic chronic kidney disease; N18.3 - Chronic kidney disease, stage 3 (moderate); Z79.4 - oysterman (current) use of insulin (3) Hyperlipidemia Hyperlipidemia type: unspecified Qualified Code(s): E78.5 - Hyperlipidemia, unspecified (4) Hypothyroid Hypothyroidism type: unspecified Qualified Code(s): E03.9 - Hypothyroidism, unspecified (5) CKD (chronic kidney disease) Chronic kidney disease stage: stage 3 (moderate) Qualified Code(s): N18.3 - Chronic kidney disease, stage 3 (moderate) (6) HTN (hypertension) Hypertension type: essential hypertension Qualified Code(s): I10 - Essential (primary) hypertension
--- NOTE | 2019-09-30 05:50 | Billing Data ---
Date of Service September 30, 2019 Coding Level of Care Code 30987 Initial Inpt Care Lvl 3
[2019-09-30] MEDS: LEVOTHYROXINE SODIUM 75 MCG TABLET PO SCH (06:26)
[2019-09-30] MEDS: ATORVASTATIN 20 MG TAB PO SCH (07:36)
[2019-09-30] MEDS: AMLODIPINE BESYLATE 5 MG TAB PO SCH (07:36)
[2019-09-30] MEDS: HYDROXYCHLOROQUINE SULFATE 200 MG TAB PO SCH ×2 (07:36→21:35)
[2019-09-30] MEDS: INSULIN GLARGINE SOLOSTAR 100 UNITS/ML 3 ML PEN SC SCH (07:37)
[2019-09-30] MEDS: HEPARIN SOD 5,000 UNIT/0.5 ML VIAL SQ SCH ×2 (07:38→21:37)
[2019-09-30 07:45] LABS: BUN Creatinine Ratio 19.4 (10-20); Calcium 8.8 mg/dl (8.5-10.1); Creatinine Clr Calc Pharmacy 50.9 ml/min; Est GFR (African American) 47.9; Est GFR (Non-African American) 41.3; Potassium 4.6 mmol/L (3.5-5.1)
[2019-09-30] MEDS: INSULIN ASPART 100 UNITS/ML 3 ML PEN SC SCH ×4 (08:48→21:35)
[2019-09-30] MEDS: DEXTROSE 5% 1,000 ML IV SCH (09:57)
[2019-09-30] MEDS ORDERED: SODIUM CHLORIDE 0.9% 1000ML 1,000 ML IV SCH (12:45)
[2019-09-30 13:35] LABS: BUN Creatinine Ratio 15.1 (10-20); Calcium 9.1 mg/dl (8.5-10.1); Est GFR (African American) 35.8; Est GFR (Non-African American) 30.9; Potassium 4.6 mmol/L (3.5-5.1)
[2019-09-30 15:23] LABS: Appearance Urine Clear (Clear); Bilirubin Urine Negative (Negative); Blood Urine Negative (Negative); Color Urine Yellow; Glucose Urine UA Negative (Negative); Ketones Urine Negative (Negative); Leukocyte Esterase Urine Trace (Negative); Nitrite Urine Negative (Negative); Protein Urine Negative (Negative); Urobilinogen Urine Negative (Negative)
[2019-09-30 15:39] LABS: Bacteria Urine Negative (Negative); RBC Urine 0-4 /hpf (0-4); WBC Urine 0-5 /hpf (0-5)
[2019-09-30 19:01] LABS: Calcium 8.6 mg/dl (8.5-10.1); Creatinine Clr Calc Pharmacy 41.7 ml/min; Est GFR (African American) 37.6; Est GFR (Non-African American) 32.4; Potassium 4.4 mmol/L (3.5-5.1)
--- NOTE | 2019-09-30 19:32 | Hospitalist Progress Note ---
Date of Service September 30, 2019 Assessment & Plan (1) Hyponatremia: Na 121 on admission. 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 Worsened Na overnight due to D5W use (started to avoid over rapid correction. Sodium improved from 126 to 129 after stopping D5W. She was placed on NSS by Dr Sepulveda before lunch time sodium was resulted and will discontinue this. Na still 129 on repeat labs despite NSS use. Will keep off all IV fluids and repeat in AM. (2) Diabetes: Reduce lantus to 10 units QAM, 5 units QPM Continue insulin SS while admitted with correction and carb coverage (3) CKD (chronic kidney disease): Baseline 1.5-1.8 UA negative for protein and renal US unremarkable. Reports having no proteinuria on outpatient test (4) HTN (hypertension): Continue amlodipine and monitor worsening leg swelling BP stable Holding lisinopril and spironolactone due to hyponatremia (5) Hypothyroid: TSH 2.76. Continue levothyroxine 75 mcg daily (6) Hyperlipidemia: Continue atorvastatin 20 mg p.o. daily (7) Arthralgia: Post lyme syndrome, arthralgias/fatigue syndrome. Sister has Sjogren's and patient has no formal diagnosis of lupus although she has improved on Plaquenil. Continue Plaquenil 200 mg p.o. twice daily (8) Family history of multiple myeloma: (9) DVT prophylaxis: Continue heparin 5000 units SQ twice daily Subjective Patient reports no ongoing concerns with fatigue. No acute events overnight. Feels back to her normal self. She reports prior to starting Ozempic she was on Trulicity in addition to Xultophy (also contains a GLP-1 agonist). She reports her urine frequency/polyuria has cleared up since admission. She has also stopped hydrochlorothiazide and spironolactone during this timeframe. No dysuria. No fevers or chills. Discuss care with Dr. Sepulveda. Recommended okay for discharge if sodium > 130. Review of Systems Review of Systems: All systems reviewed & are unremarkable except as noted in HPI & below Physical Exam Constitutional: well developed and well nourished; no acute distress Eyes: + anicteric sclerae; normal pupil size ENMT: external ear and nose normal, oropharynx normal Neck: trachea midline Respiratory: normal respiratory effort, lungs clear to auscultation Cardiovascular: Rate/Rhythm: regular rate and regular rhythm Heart Sounds: no murmur Extremities: + pedal edema (trace b/l) Gastrointestinal (Abdomen): normal bowel sounds, soft, nontender, no hepatosplenomegaly Musculoskeletal: no cyanosis or clubbing, extremities motor strength 5/5 Skin: no rashes, warm and dry Neurologic: moves all extremities and awake; no focal motor deficits and not confused Speech / Cognition: normal speech Motor/Sensory: no tremor, no pronator drift and no sensory deficit Psychiatric: A+Ox3, euthymic affect Results & Data Vital Signs (Past 12 Hours) Vital Signs Temp Pulse Pulse Resp BP Pulse Ox 09/30/19 15:57 36.7 C 70 16 129/61 98 09/30/19 07:46 36.5 C 66 16 122/76 98 PG Care Time/CCT Total # of Minutes Spent Total Time Spent with Patient: Total time spent is greater than 50% in coordination of care (as documented) at patient's floor/unit and/or counseling patient: (1) Diabetes Diabetes mellitus type: type 2 Diabetes mellitus usp insulin use: with usp use Diabetes mellitus complication status: with kidney complications Diabetes mellitus complication detail: with chronic kidney disease Chronic kidney disease stage: stage 3 (moderate) Qualified Code(s): E11.22 - Type 2 d iabetes mellitus with diabetic chronic kidney disease; N18.3 - Chronic kidney disease, stage 3 (moderate); Z79.4 - jail (current) use of insulin (2) CKD (chronic kidney disease) Chronic kidney disease stage: stage 3 (moderate) Qualified Code(s): N18.3 - Chronic kidney disease, stage 3 (moderate) (3) HTN (hypertension) Hypertension type: essential hypertension Qualified Code(s): I10 - Essential (primary) hypertension (4) Hypothyroid Hypothyroidism type: unspecified Qualified Code(s): E03.9 - Hypothyroidism, unspecified (5) Hyperlipidemia Hyperlipidemia type: unspecified Qualified Code(s): E78.5 - Hyperlipidemia, unspecified (6) Arthralgia Joint pain location: unspecified Qualified Code(s): M25.50 - Pain in unspecified joint
[2019-09-30] MEDS ORDERED: INSULIN GLARGINE SOLOSTAR 100 UNITS/ML 3 ML PEN SC SCH (21:00)
[2019-09-30 23:43] VITALS: O2SAT 96
[2019-10-01] MEDS: LEVOTHYROXINE SODIUM 75 MCG TABLET PO SCH (05:59)
[2019-10-01 07:14] VITALS: BP 123/77; TEMP 98.1
[2019-10-01 07:17] LABS: BUN Creatinine Ratio 17.1 (10-20); Calcium 9.1 mg/dl (8.5-10.1); Creatinine Clr Calc Pharmacy 47.2 ml/min; Est GFR (African American) 43.7; Est GFR (Non-African American) 37.7; Magnesium 1.8 mg/dl (1.8-2.4); Potassium 4.4 mmol/L (3.5-5.1)
[2019-10-01] MEDS: AMLODIPINE BESYLATE 5 MG TAB PO SCH (07:48)
[2019-10-01] MEDS: HYDROXYCHLOROQUINE SULFATE 200 MG TAB PO SCH (07:48)
[2019-10-01] MEDS: ATORVASTATIN 20 MG TAB PO SCH (07:49)
[2019-10-01] MEDS: HEPARIN SOD 5,000 UNIT/0.5 ML VIAL SQ SCH (07:51)
[2019-10-01 08:24] VITALS: PULSE 69
[2019-10-01] MEDS ORDERED: INSULIN GLARGINE SOLOSTAR 100 UNITS/ML 3 ML PEN SC SCH ×2 (09:00)
[2019-10-01] MEDS: INSULIN ASPART 100 UNITS/ML 3 ML PEN SC SCH (09:39)
--- NOTE | 2019-10-03 16:09 | Discharge Summary ---
Date of Service October 01, 2019 Admission HPI Per Admitting Provider Pt is a 59yo F PMH CKD, DM, HTN, hypothyroid, DLD, Fibromyalgia, who presents at request of outside provider for abnormal labs. Pt notes she has been feeling unwell for several weeks, but symptoms worsened today. She notes general malaise, nausea (intermittent), weakness, and increased urination despite no increase in fluid intake. Patient notes that 3 weeks ago her PCP checked lab work which revealed a creatinine elevation at 2.1; she notes this is the highest it has been in 5 years. She also notes continued frequency of urination, which prompted her PCP prescribing a 7-day course of antibiotics. She states she felt okay for 3 or 4 days, then symptoms returned. PCP ordered labs at that time, and then changed her antibiotics to a 10-day course. She does not recall which antibiotics she was on. She notes that her PCP got her lab results back and UA did not show an infection, however, patient was continuing to have lower back symptoms as well as frequency of urination. Due to her elevated creatinine, her PCP set her up with nephrology through [facility] with Dr. Yasmeen Lundberg. Her first appointment was this week. Per the patient, Dr. Lundberg obtained lab work which resulted today, and patient was found to be hyponatremic, which prompted referral to the ER. Of note, patient recently started medication Ozempic for her diabetes in August. She was concerned that despite her improved glucose control, the medication was causing her kidney issues. Patient notes that her soaker meat said this was unlikely unless she was dehydrated. Patient states she drinks at least 70 ounces of water per day. Her last dose was about a week ago. Her PCP and thread inspector suggested she DC this medication. She notes her blood sugars have been improved however, and notes her last A1c was 6.7% last month. Per the patient, Dr. Lundberg discontinued her HCTZ medication, and also added amlodipine to her regimen. Evaluation in the ER revealed a normal CBC, and BMP showed a sodium of 121, potassium 4.2 creatinine of 1.83. It appears her baseline is 1.5-1.6. Serum osm was measured at 260, urine osm was measured at 337, urine sodium of 36, urine potassium of 19, urine creatinine was ordered. TSH was normal. Chest x- ray normal, EKG with normal sinus rhythm. Admission Exam Per Admitting Provider General: Well-appearing F, in no significant distress. HEENT: No scleral icterus, PERRLA, neck supple. Atraumatic. Cardiovascular: Regular rate and rhythm, systolic murmur noted. Pulmonary: Clear to auscultation bilaterally, normal work of breathing. Abdomen: Soft, nontender, nondistended, positive bowel sounds. Musculoskeletal: Atraumatic, trace to 1+ peripheral edema bilaterally. Neurologic: Patient awake alert and oriented x 3, full strength in all 4 extremities. Cranial nerves 2 through 12 grossly intact. Skin: Warm, dry, no rash Principal Diagnosis Hyponatremia secondary to spironolactone, hydrochlorothiazide and primary psychogenic polydipsia Discharge Exam Constitutional well developed and + obese; no acute distress Eyes + anicteric sclerae; normal pupil size Respiratory normal respiratory effort, lungs clear to auscultation Cardiovascular RRR, no murmur, no edema Gastrointestinal (Abdomen) normal bowel sounds, soft, nontender, no hepatosplenomegaly Neurologic moves all extremities and awake; not confused Psychiatric A+Ox3, euthymic affect Genitourinary no CVA tenderness Discharge Data Allergies Allergy/AdvReac Type Severity Reaction Status Date / Time levofloxacin Allergy Unknown ` Verified 09/28/19 17:31 hydrochlorothiazide AdvReac Mild Caused Verified 09/29/19 18:06 hyponatremia Consultations 09/28/19 19:58 ED Decision to Admit Stat 09/28/19 22:02 Consult Nephrology Routine Ordered Studies 09/29/19 08:08 US renal/blad retro comp Routine Hospital Course (1) Hyponatremia: Sandra Farr is a 59 year old female admitted to [facility] from September 28 to 2018 due to hyponatremia and associated fatigue. Subsequent work-up and history consistent psychogenic polydipsia with spironolactone and hydrochlorothiazide use. She improved with a fluid restriction and discontinuing offending medications. Na 121 on admission, 132 on discharge. Labs will be repeated in approximately 1 weeks and she is to continue on 1500ml fluid restriction. She is to call on Wednesday to arrange follow up appointment with her thread inspector. Of note renal US was unremarkable. Advised to restart her usual ozempic on discharge as this is not thought to be contributing. Kind regards, Dr. Leeroy Briana (2) Diabetes: (3) CKD (chronic kidney disease): (4) HTN (hypertension): (5) Hypothyroid: (6) Hyperlipidemia: (7) Arthralgia: (8) Family history of multiple myeloma: Total Time Total Time Spent Total Time Spent (In Minutes): 45 Total Time Includes: Examination of the Patient, Discharge Planning and Medication Reconciliation Discharge Plan Discharge Items Patient Disposition: Home - Self-Care Reason For Visit: HYPONATREMIA Discharge Diagnosis: Hyponatremia (low sodium) due to spironolactone, hydrochlorothiazide and excessive free water hydration Activity: Resume your previous activity Non-emergency contact: Primary Care Provider Call non-emergency contact if: you have any medication questions, your symptoms worsen and your temperature is above 101 Follow-up/Referrals: Miriam Zaragoza MD, PhD [Physician] - Chavez Griffin Jr, DO [Primary Care Provider] - 10/03/19 11:00 am (Please, follow up with Dr. Griffin on WednesdayOctober 03 at 11:00 am. *If you need to change this appointment, call the office at [phone].) Diet: Carb Consistent or DM2 Fluids: 1500ml (6 cups) Ambulatory Orders: Basic Metabolic Panel (Routine) Timeframe: 1 Week Location: Determined by Patient Ordered By: Leeroy Burt Attending Provider Instructions: You were admitted to [facility] from September 28 to 2018 due to low sodium levels and fatigue. Subsequent work-up and history consistent with excessive free water intake while taking spironolactone and hyd rochlorothiazide. Your sodium has now improved to 132. Please continue to restrict your fluid intake to 1500 mL daily. Repeat labs in approximately 1 week. Please call your primary care physician or thread inspector if your symptoms return prior to this. With regards to your diabetes you are requiring much less insulin that you usually do and have had some low glucose levels. Recommend going back on your usual regimen on discharge but if continuing to have low glucose levels reduce Tresiba by 4 units and/or call your soaker meat. Your HbA1c is currently well controlled at 6.3. Kind regards, Dr. Leeroy Warren Pending Studies at Discharge: No Stand-Alone Forms: My [facility] Medications and DC Order Prescriptions: Continued atorvastatin 20 mg tablet 20 mg PO DAILY RF: 0 fluconazole 150 mg tablet 150 mg PO UD RF: 0 cyanocobalamin (vitamin B-12) [Vitamin B-12] 1,000 mcg Tablet 0 mcg PO DAILY RF: 0 amlodipine 5 mg tablet 5 mg PO DAILY RF: 0 levothyroxine 75 mcg tablet 75 mcg PO DAILY RF: 0 hydroxychloroquine 200 mg tablet 200 mg PO BID RF: 0 vitamin E 400 unit Capsule 400 unit PO DAILY RF: 0 cholecalciferol (vitamin D3) [Vitamin D3] 1,000 unit Tablet,Chewable 0 unit PO DAILY RF: 0 Align 10.5 mg (10 million cell) Tablet,Chewable 0 mg PO DAILY RF: 0 Ozempic 0.25 mg or 0.5 mg(2 mg/1.5 mL) Pen Injector 0 mg SUBCUT WK RF: 0 Tresiba FlexTouch U-100 100 unit/mL (3 mL) Insulin Pen 24 unit SUBCUT HS RF: 0 Discontinued lisinopril 20 mg tablet 20 mg PO DAILY RF: 0 spironolactone 25 mg tablet 0 mg PO DAILY RF: 0 Discharge Orders: Discharge Order (Routine); Ordered 10/01/19 Ordered By: Leeroy Warren Admission Data Admit Date/Time: 09/28/19 21:12 Attending Provider: Leeroy Warren Admit Provider: Ce Guo Primary Care Provider: Chavez Griffin Jr Other Providers: Moy Clemente ; Miriam Zaragoza Other Interventions: Discharge Summary Assessment (RN) Last Done: 10/01/19 08:23 DC Date/Time DO NOT enter until pt leaves facility: 10/01/19 11:15
== END 2019-10-01 11:15 | disposition home or self-care (01) | DRG 641 ==
LOC: ED 16:04 → 2N 21:12 → SUATTDRO 21:12 → 2N 21:38